=== PATIENT | male | born 1955 | race Caucasian/White ===

== ENCOUNTER 2022-06-25 07:52 | Outpatient (CLI) | payer MEDICARE, OTHER, SELFPAY | END 2022-06-25 07:53 | disposition home or self-care (01) | LOC: ANHAUDIO 07:53 | PROVIDERS: PCP Internal Medicine; Visit Provider Clinical Nurse Specialist | DX: H90.3 Sensorineural hearing loss, bilateral (principal) | CPT/HCPCS: 92557; 92567 ==

== ENCOUNTER 2022-08-04 00:57 | Day surgery (SDC) | payer MEDICARE, OTHER, SELFPAY ==
[2022-07-22 11:49] VITALS: BMI 23.1
--- NOTE | 2022-08-01 12:01 | P.HP_ITS ---
History of Present Illness History of Present Illness Consent: Risks, benefits, and alternatives have been discussed and questions answered. Patient agrees to proceed with procedure. Chief complaint: hx colon polyps Narrative: Grant Monge is a 67 year old male referred for colon cancer screening. His last colonoscopy was about 13 years ago. Review of Systems Review of Systems: All systems reviewed & are unremarkable except as noted in HPI and below PMFSH Past Medical History Medical History Hypertension Surgical History Surgical History History of permanent cardiac pacemaker placement S/P left inguinal herniorrhaphy Family History Family History Father Patient's father is Malignant neoplasm of prostate Sibling No family history of allergies Family history of malignant neoplasm of breast Mother No family history of hypertension Cerebrovascular accident Social History Social History Social History: caffeine-coffee Smoking status: Never smoker Second hand tobacco smoke exposure: No Alcohol intake: current Drinks per week: 2 Alcohol use details: 2 drinks daily Substance use type: does not use Lack of Transportation: No Lack of Food: Never True Current Housing: I Have Housing Concerned About Future Housing: No Difficulty Paying Gas/Electric Bills: No Difficulty Paying for Meds: No Currently Unemployed: No Education: Associate Degree Difficulty w/ Childcare or Family Care: No Living arrangements: alone Meds Home Medications and Allergies Home Medications Medication Instructions Recorded Confirmed Type metoprolol succinate 25 mg 25 mg PO DAILY 05/24/21 07/22/22 History tablet,extended release 24 hr aspirin 325 mg tablet 325 mg PO DAILY 06/18/22 07/22/22 History rosuvastatin 5 mg tablet 5 mg PO DAILY 06/18/22 07/22/22 History tamsulosin 0.4 mg capsule 0.4 mg PO DAILY 07/22/22 07/22/22 History trazodone 50 mg tablet 50 mg PO DAILY PRN Sleep 07/22/22 07/22/22 History Allergies Allergy/AdvReac Type Severity Reaction Status Date / Time No Known Allergies Allergy Verified 08/04/22 08:11 Exam 2 Const: General: alert Orientation/consciousness: patient oriented x3 Resp: Auscultation: clear to auscultation bilaterally Cardio: Rhythm: regular rhythm GI: GI Palp: Yes Soft to palpation and No Tenderness to palpation present (GI) Neuro: General: patient oriented x3 Assessment and Plan Assessment and plan (1) Screening for colon cancer: Code(s): Z12.11 - Encounter for screening for malignant neoplasm of colon Status: Acute Assessment and Plan: Colonoscopy with possible biopsy or polypectomy or cautery or injection of substances.
[2022-08-04 08:12] VITALS: BP 120/81; PULSE 70; RESP 18; TEMP 36.3; O2SAT 99
[2022-08-04] MEDS: LACTATED RINGERS 1,000 ML 150 ML IV CONT (08:24)
--- NOTE | 2022-08-04 09:08 | WPDANESEPPF ---
Anes - Initial Pre Proc Eval Procedure: Operation Date: 08/04/22 09:30 Proposed Procedures p Screening Colonoscopy - Randy Bragg MD Date/Time: 08/04/22 09:08 Surgeon: Randy Bragg MD Pre Op Diagnosis: hx colon polyps Patient Data Age: 67 Gender: M Height: 1.85 m Weight: 78.5 kg Last Vital Signs Temp 97.4 F L 08/04/22 08:12 Pulse 70 08/04/22 08:12 Resp 18 08/04/22 08:12 BP 120/81 08/04/22 08:12 Pulse Ox 99 08/04/22 08:12 O2 Del Method Room Air 08/04/22 08:12 Allergies Allergy/AdvReac Type Severity Reaction Status Date / Time No Known Allergies Allergy Verified 08/04/22 08:11 Home Medications Medication Instructions Recorded Confirmed Type metoprolol succinate 25 mg 25 mg PO DAILY 05/24/21 07/22/22 History tablet,extended release 24 hr aspirin 325 mg tablet 325 mg PO DAILY 06/18/22 07/22/22 History rosuvastatin 5 mg tablet 5 mg PO DAILY 06/18/22 07/22/22 History tamsulosin 0.4 mg capsule 0.4 mg PO DAILY 07/22/22 07/22/22 History trazodone 50 mg tablet 50 mg PO DAILY PRN Sleep 07/22/22 07/22/22 History Patient hx anesthesia problems: none Family hx anesthesia problems: none Results Review: All pre-operative results and documents have been reviewed as part of the pre-operative evaluation. [facility] Past Medical History Medical History Hypertension Surgical History Surgical History History of permanent cardiac pacemaker placement S/P left inguinal herniorrhaphy Family History Family History Father Patient's father is Malignant neoplasm of prostate Sibling No family history of allergies Family history of malignant neoplasm of breast Mother No family history of hypertension Cerebrovascular accident Social History Social History Social History: caffeine-coffee Smoking status: Never smoker Second hand tobacco smoke exposure: No Alcohol intake: current Drinks per week: 2 Alcohol use details: 2 drinks daily Substance use type: does not use Lack of Transportation: No Lack of Food: Never True Current Housing: I Have Housing Concerned About Future Housing: No Difficulty Paying Gas/Electric Bills: No Difficulty Paying for Meds: No Currently Unemployed: No Education: Associate Degree Difficulty w/ Childcare or Family Care: No Living arrangements: alone Anes - Eval Final PreProcedure Day of Procedure 08/04/22 09:08 Patient weight: normal Heart: regular rate and rhythm Lungs: clear to auscultation Airway: Mallampati scale class II Neurological: alert and oriented Last oral intake: >/= 8 hours ASA classification: III Emergent: no Anesthetic plan: proceed Anesthesia type and monitoring: general GIVS and standard monitoring Results Review: All pre-operative results and documents have been reviewed as part of the pre-operative evaluation. Informed Consent: The patient's anesthetic plan and its attendant risks and benefits were discussed with the patient/family/POA. Questions were solicited and answers provided to the satisfaction of the patient/family/POA.
[2022-08-04 09:52] VITALS: BP 114/74; PULSE 63; RESP 19; O2SAT 98
[2022-08-04 10:02] VITALS: BP 121/71; PULSE 60; RESP 23; O2SAT 100
[2022-08-04 10:12] VITALS: BP 115/73; PULSE 60; RESP 19; O2SAT 100
== END 2022-08-04 10:14 | disposition home or self-care (01) ==
PROVIDERS: PCP Internal Medicine; Visit Provider Internal Medicine Gastroenterology
PROC: 0DJD8ZZ Inspection of Lower Intestinal Tract, Via Natural or Artificial Opening Endoscopic (ICD-10-PCS; CPT 45378; principal; 2022-08-04 09:30)
DX: Z12.11 Encounter for screening for malignant neoplasm of colon (principal); I10 Essential (primary) hypertension; Z79.82 Long term (current) use of aspirin
CPT/HCPCS: G0121; J2001; J2704; J7120

== ENCOUNTER 2024-05-13 13:08 | Observation (INO) | payer MEDICARE, OTHER, SELFPAY ==
[2024-05-13] VITALS (13 sets, daily range): BP systolic 95–155; BP diastolic 57–90; PULSE 61–106; RESP 12–20; TEMP 36.1–37.4; O2SAT 96–100; BMI 24.7; BMI 24.5
--- NOTE | ~2024-05-13 | CT_ITS ---
EXAMINATION: CT abdomen pelvis w con DATE: 05/13/2024 16:33 INDICATION: Abdominal pain and diarrhea. TECHNIQUE: Computed tomography (CT) of the abdomen and pelvis was performed with 100 mL Omnipaque-350 intravenous contrast. Automated exposure control and iterative reconstruction technique were employe d. The dose-length product was 305.25 mGy-cm. COMPARISON: None FINDINGS: Mild dependent atelectasis in the bilateral lower lobes. Heart size is normal. No pericardial effusio n. Cardiac pacemaker lead tips at the right atrial appendage and apex of the right ventricle. Multipl e low-attenuation hepatic cysts measuring up to 1.3 cm. Gallbladder, spleen, pancreas, bilateral adre nal glands and left kidney are normal. 2 cm right renal cyst. There is also a 4 mm nonobstructing rig ht renal stone. There is wall thickening of the fluid-filled appendix which is dilated to 1.3 similar with surrounding inflammatory stranding consistent with acute appendicitis. Remainder of the bowels are unremarkable. Bladder is normal. Prostatomegaly measuring 5.8 x 5.6 cm. No free intraperitoneal g as or fluid. No pathologically enlarged abdominal or pelvic lymphadenopathy. Severe lumbar spondylosi s. IMPRESSION: 1. Acute appendicitis. Dr. Dunn discussed these findings with Alicja Ferguson at 6:38 PM. Reviewed, dictated and finalized at location A.
--- NOTE | 2024-05-13 13:41 | ED_ITS ---
HPI - Abdominal Pain General Chief Complaint: Abdominal Pain Stated Complaint: flank pain Time Seen by Provider: 05/13/24 13:41 Focused HPI: This is a 69 year old male that presents to the ER for low back pain. Ongoing over the last couple of weeks. Was prescribed muscle relaxer with little relief. Last night woke up feeling bloated. Had some diarrhea. Also now having pain in his abdomen. History of kidney stones. Denies fever, dysuria or hematuria GENERAL: Well-appearing, well-nourished, and in no acute distress. HEAD: Normocephalic, atraumatic. CHEST: Clear to auscultation. ?No respiratory distress. HEART: Regular rate and rhythm.? NEURO: ?Alert and oriented x3. Patient screened in triage and initial orders placed.? ?Additional care and disposition to be based upon?diagnostic testing and treatment. Related Data Home Medications Medication Instructions Recorded Confirmed aspirin 325 mg tablet 325 mg PO DAILY 06/18/22 05/04/24 tamsulosin 0.4 mg capsule 0.4 mg PO DAILY 07/22/22 05/04/24 Allergies Allergy/AdvReac Type Severity Reaction Status Date / Time No Known Allergies Allergy Verified 05/04/24 08:04 [facility] Past Medical History Medical History Hypertension Surgical History Surgical History History of permanent cardiac pacemaker placement S/P left inguinal herniorrhaphy Family History Family History Father Patient's father is Malignant neoplasm of prostate Sibling No family history of allergies Family history of malignant neoplasm of breast Mother No family history of hypertension Cerebrovascular accident Social History Social History Social History: caffeine-coffee Smoking status: Never smoker Second hand tobacco smoke exposure: No Alcohol intake: current Drinks per week: 2 Alcohol use details: 2 drinks daily Substance use type: does not use Do You Feel Safe in your Home?: Yes Lack of Transportation: No Lack of Food: Never True Current Housing: I Have Housing Concerned About Future Housing: No Difficulty Paying Gas/Electric Bills: No Difficulty Paying for Meds: No Currently Unemployed: No Education: Associate Degree Difficulty w/ Childcare or Family Care: No Living arrangements: alone Occupation/Education: occupation 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 Gender identity (if verbalized by the patient): Male Course Vital Signs Vital signs: Vital Signs Temperature 98.0 F 05/13/24 13:09 Pulse Rate 76 05/13/24 13:09 Respiratory Rate 18 05/13/24 13:09 Blood Pressure 113/90 05/13/24 13:09 Pulse Oximetry 99 05/13/24 13:09 Oxygen Delivery Room Air 05/13/24 13:09 Temperature 98.0 F 05/13/24 13:09 Pulse Rate 76 05/13/24 13:09 Respiratory Rate 18 05/13/24 13:09 Blood Pressure 113/90 05/13/24 13:09 Pulse Oximetry 99 05/13/24 13:09 Oxygen Delivery Room Air 05/13/24 13:09 MDM - Abdominal Pain Lab Data 05/13/24 13:52 05/13/24 13:52 Labs: Lab Results 05/13/24 05/13/24 05/13/24 Range/Units 13:52 13:53 16:17 WBC 13.3 H (4.5-10.0) K/mm3 RBC 5.10 (4.6-6.20) M/mm3 Hgb 16.0 (14.0-18.0) g/dL Hct 46.6 (42.0-52.0) % MCV 91.4 (80-100) fl MCH 31.4 (26-34) pg MCHC 34.3 (32-36) g/dl RDW 11.9 (11.5-14.5) % Plt Count 206 (150-375) k/mm3 MPV 10.0 (7.4-10.4) fl Immature Gran % (Auto) Not Reportable Neut % (Auto) Not Reportable Lymph % (Auto) Not Reportable [place] % (Auto) Not Reportable Eos % (Auto) Not Reportable Baso % (Auto) Not Reportable Lymph # (Auto) Not Reportable [place] # (Auto) Not Reportable Eos # (Auto) Not Reportable Baso # (Auto) Not Reportable Abs Immat Gran (auto) Not Reportable Absolute Neuts (auto) Not Reportable Absolute Nucleated RBC Not Reportable Total Counted 100 Neutrophils % (Manual) 86 H (46-73) % Band Neutrophils % 4 (0-6) % Lymphocytes % (Manual) 6 L (18-44) % Monocytes % (Manual) 4 (3-9) % Eosinophils % (Manual) 0 (0-4) % Basophils % (Manual) 0 (0-1) % Nucleated RBC % Not Reportable Abs Neuts (Manual) 11.97 H (1.3-6.7) K/mm3 Abs Lymphs (Manual) 0.79 L (1.1-4.5) K/mm3 Abs Monocytes (Manual) 0.53 (0.1-0.90) K/mm3 Absolute Eos (Manual) 0.00 L (0.02-0.50) K/mm3 Abs Basophils (Manual) 0.00 (0.0-0.1) K/mm3 Platelet Estimate Adequate (Adequate) Schistocytes None seen Sodium 135 L (137-145) mmol/L Potassium 4.0 (3.4-5.0) mmol/L Chloride 100 (98-107) mmol/L Carbon Dioxide 29 (22-30) mmol/L Anion Gap 6 (4-12) mmol/L BUN 24 H (9-20) mg/dL Creatinine 0.70 (0.7-1.3) mg/dL Estim Creat Clear Calc 93 ml/min Estimated GFR > 60 (59 - ) Glucose 126 H (65-110) mg/dL Lactic Acid 1.0 (0.7-2.0) mmol/L Calcium 9.2 (8.4-10.2) mg/dL Total Bilirubin 1.2 (0.2-1.3) mg/dL AST 25 (17-59) U/L ALT 18 (6-50) U/L Alkaline Phosphatase 53 (38-126) U/L Total Protein 7.0 (6.3-8.2) g/dL Albumin 4.5 (3.5-5.1) g/dL Lipase 42 (23-300) U/L Urine Color Yellow (Yellow) Urine Appearance Clear (Clear) Urine pH 5.0 (5.0-9.0) Ur Specific [place] 1.025 (1.001-1.035) Urine Protein Negative (Negative) mg/dL Urine Glucose (UA) Negative (Negative) mg/dL Urine Ketones 2+ H (Negative) mg/dL Ur Blood (Man) Trace (Negative) Urine Nitrate Negative (Negative) Urine Bilirubin Negative (Negative) Urine Urobilinogen 0.2 (<2.0) mg/dL Leukocyte Esterase Rfl Negative (Negative) CONCHITA/UL Urine RBC 0-2 (0-2) /hpf Urine WBC 0-5 (0-3) /hpf Ur Squamous Epith Cells None seen (Few) /hpf Urine Bacteria None seen /hpf Urine Casts 0-2 Imaging Data Radiologist's impression: ITS Impressions Abdomen/Pelvis CT 05/13/24 16:34 IMPRESSION: 1. Acute appendicitis. Dr. Dunn discussed these findings with Alicja Ferguson at 6:38 PM. Discharge Plan Discharge Instructions: Antibiotic Form Prescriptions: No Action aspirin 325 mg tablet 325 mg PO DAILY tamsulosin 0.4 mg capsule 0.4 mg PO DAILY metoprolol succinate 25 mg tablet extended release 24 hr 25 mg PO DAILY Qty: 90 1RF trazodone 50 mg tablet 50 mg PO DAILY PRN (Reason: Sleep) Qty: 30 0RF Rx Instructions: NEEDS APPOINTMENT FOR FURTHER REFILLS rosuvastatin 5 mg tablet 5 mg PO DAILY Qty: 90 0RF cyclobenzaprine 10 mg tablet 10 mg PO BID PRN (Reason: muscle spasm) Qty: 30 0RF Follow-up/Referrals: Naeem Rouse DO [Primary Care Provider] -
[2024-05-13 13:59] LABS: Hematocrit 46.6 % (42.0-52.0); Mean Corpuscular HGB Conc 34.3 g/dl (32-36); Mean Corpuscular Hemoglobin 31.4 pg (26-34); Mean Corpuscular Volume 91.4 fl (80-100); Platelet Count Result 206 k/mm3 (150-375); Red Cell Distribution Width 11.9 % (11.5-14.5); White Blood Count 13.3 K/mm3 (4.5-10.0)
[2024-05-13 14:04] LABS: Add Urine Microscopic? YES; Appearance Urine Clear (Clear); Bacteria Urine None Seen /hpf; Bilirubin Urine Negative (Negative); Blood Urine Trace (Negative); Color Urine Yellow (Yellow); Glucose Urine UA Negative (Negative); Ketones Urine 2+ mg/dL (Negative); Leukocyte Esterase Ur Negative LEU/UL (Negative); Nitrate Urine Negative (Negative); Non Pathogenic Casts 0-2; Protein Urine Negative (Negative); RBC Urine 0-2 /hpf (0-2); Specific Grav Ur 1.025 (1.001-1.035); Squamous Epithelial Cell Urine None Seen /hpf (Few); Urobilinogen Urine 0.2 mg/dL (<2.0); WBC Urine 0-5 /hpf (0-3)
[2024-05-13 14:11] LABS: Alanine Aminotransferase 18 U/L (6-50); Albumin Level 4.5 g/dL (3.5-5.1); Alkaline Phosphatase 53 U/L (38-126); Anion Gap 6 mmol/L (4-12); Aspartate Amino Transferase 25 U/L (17-59); Bilirubin,Total 1.2 mg/dL (0.2-1.3); Blood Urea Nitrogen 24 mg/dL (9-20); Calcium 9.2 mg/dL (8.4-10.2); Carbon Dioxide 29 mmol/L (22-30); Chloride 100 mmol/L (98-107); Estimated CRCL calculation 93 ml/min; Estimated Glomerular Filt Rate > 60; Glucose 126 mg/dL (65-110); Lipase 42 U/L (23-300); Sodium 135 mmol/L (137-145)
[2024-05-13 14:25] LABS: Band Neutrophils Percent 4 % (0-6); Basophils Percent Manual 0 % (0-1); Eosinophils Percent Manual 0 % (0-4); Lymphocytes Absolute Manual 0.79 K/mm3 (1.1-4.5); Lymphocytes Percent Manual 6 % (18-44); Monocytes Absolute Manual 0.53 K/mm3 (0.1-0.90); Monocytes Percent Manual 4 % (3-9); Neutrophils Absolute Manual 11.97 K/mm3 (1.3-6.7); Neutrophils Percent Manual 86 % (46-73); Platelet Estimate Adequate (Adequate); Total Cells Counted 100
[2024-05-13 14:27] LABS: Schistocytes None Seen
--- NOTE | 2024-05-13 16:00 | ED_ITS ---
HPI - Abdominal Pain General Chief Complaint: Abdominal Pain Stated Complaint: flank pain Time Seen by Provider: 05/13/24 13:41 Source: patient and family History of Present Illness HPI narrative: 69 YEARS OLD WHITE MALE COMPLAINING OF LEFT MID BACK PAIN FOR OVER 2 WEEKS, WAS SEEN BY HIS FAMILY PHYSICIAN, STARTED HIM ON MUSCLE RELAXANT AND IBUPROFEN WITHOUT IMPROVEMENT. PATIENT CAME TO THE ED BY PRIVATE CAR WITH HIS , COMPLAINING OF NAUSEA FREQUENT VOMITING AND ABDOMINAL BLOATING STARTED THIS MORNING, FEELS BETTER WHEN HE PASSED GAS.. HE DENIES ANY FEVER OR CHILLS. HISTORY OF LEFT ABDOMINAL HERNIA REPAIR 5 YEARS AGO AT [facility]. PATIENT CURRENTLY ON ASPIRIN, HISTORY OF HYPERLIPIDEMIA, AND PACEMAKER Related Data Home Medications Medication Instructions Recorded Confirmed aspirin 325 mg tablet 325 mg PO DAILY 06/18/22 05/04/24 tamsulosin 0.4 mg capsule 0.4 mg PO DAILY 07/22/22 05/04/24 Allergies Allergy/AdvReac Type Severity Reaction Status Date / Time No Known Allergies Allergy Verified 05/04/24 08:04 Review of Systems Review of Systems: All systems reviewed & are unremarkable except as noted in HPI and below PMFSH Past Medical History Medical History Hypertension Surgical History Surgical History History of permanent cardiac pacemaker placement S/P left inguinal herniorrhaphy Family History Family History Father Patient's father is Malignant neoplasm of prostate Sibling No family history of allergies Family history of malignant neoplasm of breast Mother No family history of hypertension Cerebrovascular accident Social History Social History Social History: caffeine-coffee Smoking status: Never smoker Second hand tobacco smoke exposure: No Alcohol intake: current Drinks per week: 2 Alcohol use details: 2 drinks daily Substance use type: does not use Do You Feel Safe in your Home?: Yes Lack of Transportation: No Lack of Food: Never True Current Housing: I Have Housing Concerned About Future Housing: No Difficulty Paying Gas/Electric Bills: No Difficulty Paying for Meds: No Currently Unemployed: No Education: Associate Degree Difficulty w/ Childcare or Family Care: No Living arrangements: alone Occupation/Education: occupation 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 MUSCULOSKELETAL: NORMAL RANGE OF MOTION, NONTENDER BACK NEUROLOGIC: ALERT AND ORIENTED ?3, MATERIAL ATTENDANT IS NORMAL TESTED, NO GROSS MOTOR DEFICIT Course Consultations Consultation #1: DR. CARO PATIENT GOING TO THE OR RIGHT NOW Date: 05/13/24 Time: 17:19 Vital Signs Vital signs: Vital Signs Temperature 36.7 C 05/13/24 13:09 Pulse Rate 76 05/13/24 13:09 Respiratory Rate 18 05/13/24 13:09 Blood Pressure 113/90 05/13/24 13:09 Pulse Oximetry 99 05/13/24 13:09 Oxygen Delivery Room Air 05/13/24 13:09 Temperature 36.7 C 05/13/24 13:09 Pulse Rate 76 05/13/24 13:09 Respiratory Rate 18 05/13/24 13:09 Blood Pressure 113/90 05/13/24 13:09 Pulse Oximetry 99 05/13/24 13:09 Oxygen Delivery Room Air 05/13/24 13:09 MDM - Abdominal Pain MDM Narrative Medical decision making narrative: PATIENT CAME WITH LEFT FLANK PAIN, VOMITING AND BLOATING. VITAL SIGNS ARE STABLE PHYSICAL EXAMINATION SHOWING TENDERNESS RIGHT LOWER QUADRANT OTHERWISE NO ACUTE ABDOMEN FINDING DIFFERENTIAL DIAGNOSIS INCLUDE KIDNEY STONE, URINARY TRACT INFECTION, APPENDICITIS, CHOLECYSTITIS, CONSTIPATION, COLITIS, DIVERTICULITIS, APPENDICITIS BLOOD WORKUP TODAY SHOWED WBC 13.3 URINALYSIS SHOWED NO EVIDENCE OF INFECTION CT SCAN OF THE ABDOMEN AND PELVIS WITH IV CONTRAST SHOWED ACUTE APPENDICITIS ZOSYN IV STARTED DR. CARO CONSULTED. Differential Diagnosis Differential diagnosis: Likely other ( ABOVE) Medical Records Attestation: I reviewed the patient's medical records. Lab Data Attestation: I reviewed the patient's lab results. 05/13/24 13:52 05/13/24 13:52 Labs: Lab Results 05/13/24 05/13/24 05/13/24 Range/Units 13:52 13:53 16:17 WBC 13.3 H (4.5-10.0) K/mm3 RBC 5.10 (4.6-6.20) M/mm3 Hgb 16.0 (14.0-18.0) g/dL Hct 46.6 (42.0-52.0) % MCV 91.4 (80-100) fl MCH 31.4 (26-34) pg MCHC 34.3 (32-36) g/dl RDW 11.9 (11.5-14.5) % Plt Count 206 (150-375) k/mm3 MPV 10.0 (7.4-10.4) fl Immature Gran % (Auto) Not Reportable Neut % (Auto) Not Reportable Lymph % (Auto) Not Reportable [place] % (Auto) Not Reportable Eos % (Auto) Not Reportable Baso % (Auto) Not Reportable Lymph # (Auto) Not Reportable [place] # (Auto) Not Reportable Eos # (Auto) Not Reportable Baso # (Auto) Not Reportable Abs Immat Gran (auto) Not Reportable Absolute Neuts (auto) Not Reportable Absolute Nucleated RBC Not Reportable Total Counted 100 Neutrophils % (Manual) 86 H (46-73) % Band Neutrophils % 4 (0-6) % Lymphocytes % (Manual) 6 L (18-44) % Monocytes % (Manual) 4 (3-9) % Eosinophils % (Manual) 0 (0-4) % Basophils % (Manual) 0 (0-1) % Nucleated RBC % Not Reportable Abs Neuts (Manual) 11.97 H (1.3-6.7) K/mm3 Abs Lymphs (Manual) 0.79 L (1.1-4.5) K/mm3 Abs Monocytes (Manual) 0.53 (0.1-0.90) K/mm3 Absolute Eos (Manual) 0.00 L (0.02-0.50) K/mm3 Abs Basophils (Manual) 0.00 (0.0-0.1) K/mm3 Platelet Estimate Adequate (Adequate) Schistocytes None seen Sodium 135 L (137-145) mmol/L Potassium 4.0 (3.4-5.0) mmol/L Chloride 100 (98-107) mmol/L Carbon Dioxide 29 (22-30) mmol/L Anion Gap 6 (4-12) mmol/L BUN 24 H (9-20) mg/dL Creatinine 0.70 (0.7-1.3) mg/dL Estim Creat Clear Calc 93 ml/min Estimated GFR > 60 (59 - ) Glucose 126 H (65-110) mg/dL Lactic Acid 1.0 (0.7-2.0) mmol/L Calcium 9.2 (8.4-10.2) mg/dL Total Bilirubin 1.2 (0.2-1.3) mg/dL AST 25 (17-59) U/L ALT 18 (6-50) U/L Alkaline Phosphatase 53 (38-126) U/L Total Protein 7.0 (6.3-8.2) g/dL Albumin 4.5 (3.5-5.1) g/dL Lipase 42 (23-300) U/L Urine Color Yellow (Yellow) Urine Appearance Clear (Clear) Urine pH 5.0 (5.0-9.0) Ur Specific [place] 1.025 (1.001-1.035) Urine Protein Negative (Negative) mg/dL Urine Glucose (UA) Negative (Negative) mg/dL Urine Ketones 2+ H (Negative) mg/dL Ur Blood (Man) Trace (Negative) Urine Nitrate Negative (Negative) Urine Bilirubin Negative (Negative) Urine Urobilinogen 0.2 (<2.0) mg/dL Leukocyte Esterase Rfl Negative (Negative) CONCHITA/UL Urine RBC 0-2 (0-2) /hpf Urine WBC 0-5 (0-3) /hpf Ur Squamous Epith Cells None seen (Few) /hpf Urine Bacteria None seen /hpf Urine Casts 0-2 Imaging Data Radiologist's impression: ITS Impressions Abdomen/Pelvis CT 05/13/24 16:34 IMPRESSION: 1. Acute appendicitis. Dr. Dunn discussed these findings with Alicja Ferguson at 6:38 PM. Critical Care Time Critical Care Time Critical Care Time: No Discharge Plan Discharge Clinical Impression: Acute appendicitis Patient Disposition: Still a Patient Condition: Stable Additional Instructions: ADMIT TO SURGERY Prescriptions: No Action aspirin 325 mg tablet 325 mg PO DAILY tamsulosin 0.4 mg capsule 0.4 mg PO DAILY metoprolol succinate 25 mg tablet extended release 24 hr 25 mg PO DAILY Qty: 90 1RF trazodone 50 mg tablet 50 mg PO DAILY PRN (Reason: Sleep) Qty: 30 0RF Rx Instructions: NEEDS APPOINTMENT FOR FURTHER REFILLS rosuvastatin 5 mg tablet 5 mg PO DAILY Qty: 90 0RF cyclobenzaprine 10 mg tablet 10 mg PO BID PRN (Reason: muscle spasm) Qty: 30 0RF Follow-up/Referrals: Naeem Rouse DO [Primary Care Provider] -
[2024-05-13] MEDS: SODIUM CHLORIDE 0.9% IV 1,000 ML 999 ML IV CONT (16:20)
[2024-05-13] MEDS: MORPHINE SULFATE (*CRX) 4 MG/ML INJ IV PUSH (16:22)
[2024-05-13] MEDS: ONDANSETRON INJ 4 MG/2 ML VIAL IV PUSH (16:22)
[2024-05-13] MEDS: PIPERACILLN/TAZ 3.375GM/NS50ML 3.375 GM/50 ML BAG IVPB (17:09)
--- NOTE | 2024-05-13 18:02 | P.PNAN_ITS ---
Anes - Initial Pre Proc Eval Procedure: Operation Date: 05/13/24 18:00 Proposed Procedures p Laparoscopic Appendectomy - Adalberto Quiles MD Date/Time: 05/13/24 18:02 Surgeon: Adalberto Quiles MD Pre Op Diagnosis: Acute Appendicitis Pre Op Diagnosis: flank pain Patient Data Age: 69 Gender: M Height: 1.85 m Weight: 79 kg Last Vital Signs Temp 36.7 C 05/13/24 13:09 Pulse 91 05/13/24 17:30 Resp 16 05/13/24 17:30 BP 131/76 05/13/24 17:30 Pulse Ox 96 05/13/24 17:30 O2 Del Method Room Air 05/13/24 13:09 Allergies Allergy/AdvReac Type Severity Reaction Status Date / Time No Known Allergies Allergy Verified 05/04/24 08:04 Home Medications Medication Instructions Recorded Confirmed Type aspirin 325 mg tablet 325 mg PO DAILY 06/18/22 05/04/24 History tamsulosin 0.4 mg capsule 0.4 mg PO DAILY 07/22/22 05/04/24 History metoprolol succinate 25 mg 25 mg PO DAILY #90 tabs 10/23/22 05/04/24 Rx tablet,extended release 24 hr trazodone 50 mg tablet 50 mg PO DAILY PRN Sleep #30 tabs 01/25/24 05/04/24 Rx rosuvastatin 5 mg tablet 5 mg PO DAILY #90 tabs 04/26/24 05/04/24 Rx cyclobenzaprine 10 mg tablet 10 mg PO BID PRN muscle spasm #30 05/04/24 05/04/24 Rx tabs Laboratory Tests 05/13/24 05/13/24 05/13/24 13:52 13:53 16:17 WBC 13.3 H K/mm3 (4.5-10.0) RBC 5.10 M/mm3 (4.6-6.20) Hgb 16.0 g/dL (14.0-18.0) Hct 46.6 % (42.0-52.0) MCV 91.4 fl (80-100) MCH 31.4 pg (26-34) MCHC 34.3 g/dl (32-36) RDW 11.9 % (11.5-14.5) Plt Count 206 k/mm3 (150-375) MPV 10.0 fl (7.4-10.4) Immature Gran % (Auto) Not Reportable Neut % (Auto) Not Reportable Lymph % (Auto) Not Reportable [place] % (Auto) Not Reportable Eos % (Auto) Not Reportable Baso % (Auto) Not Reportable Lymph # (Auto) Not Reportable [place] # (Auto) Not Reportable Eos # (Auto) Not Reportable Baso # (Auto) Not Reportable Abs Immat Gran (auto) Not Reportable Absolute Neuts (auto) Not Reportable Absolute Nucleated RBC Not Reportable Total Counted 100 Neutrophils % (Manual) 86 H % (46-73) Band Neutrophils % 4 % (0-6) Lymphocytes % (Manual) 6 L % (18-44) Monocytes % (Manual) 4 % (3-9) Eosinophils % (Manual) 0 % (0-4) Basophils % (Manual) 0 % (0-1) Nucleated RBC % Not Reportable Abs Neuts (Manual) 11.97 H K/mm3 (1.3-6.7) Abs Lymphs (Manual) 0.79 L K/mm3 (1.1-4.5) Abs Monocytes (Manual) 0.53 K/mm3 (0.1-0.90) Absolute Eos (Manual) 0.00 L K/mm3 (0.02-0.50) Abs Basophils (Manual) 0.00 K/mm3 (0.0-0.1) Platelet Estimate Adequate (Adequate) Schistocytes None seen Sodium 135 L mmol/L (137-145) Potassium 4.0 mmol/L (3.4-5.0) Chloride 100 mmol/L (98-107) Carbon Dioxide 29 mmol/L (22-30) Anion Gap 6 mmol/L (4-12) BUN 24 H mg/dL (9-20) Creatinine 0.70 mg/dL (0.7-1.3) Estim Creat Clear Calc 93 ml/min Estimated GFR > 60 (59 - ) Glucose 126 H mg/dL (65-110) Lactic Acid 1.0 mmol/L (0.7-2.0) Calcium 9.2 mg/dL (8.4-10.2) Total Bilirubin 1.2 mg/dL (0.2-1.3) AST 25 U/L (17-59) ALT 18 U/L (6-50) Alkaline Phosphatase 53 U/L (38-126) Total Protein 7.0 g/dL (6.3-8.2) Albumin 4.5 g/dL (3.5-5.1) Lipase 42 U/L (23-300) Urine Color Yellow (Yellow) Urine Appearance Clear (Clear) Urine pH 5.0 (5.0-9.0) Ur Specific [place] 1.025 (1.001-1.035) Urine Protein Negative mg/dL (Negative) Urine Glucose (UA) Negative mg/dL (Negative) Urine Ketones 2+ H mg/dL (Negative) Ur Blood (Man) Trace (Negative) Urine Nitrate Negative (Negative) Urine Bilirubin Negative (Negative) Urine Urobilinogen 0.2 mg/dL (<2.0) Leukocyte Esterase Rfl Negative CONCHITA/UL (Negative) Urine RBC 0-2 /hpf (0-2) Urine WBC 0-5 /hpf (0-3) Ur Squamous Epith Cells None seen /hpf (Few) Urine Bacteria None seen /hpf Urine Casts 0-2 Patient hx anesthesia problems: none Family hx anesthesia problems: none Prior surgeries: left hernia repair, pacemaker placement Results Review: All pre-operative results and documents have been reviewed as part of the pre- operative evaluation. [facility] Past Medical History Medical History Hypertension Surgical History Surgical History History of permanent cardiac pacemaker placement S/P left inguinal herniorrhaphy Family History Family History Father Patient's father is Malignant neoplasm of prostate Sibling No family history of allergies Family history of malignant neoplasm of breast Mother No family history of hypertension Cerebrovascular accident Social History Social History Social History: caffeine-coffee Smoking status: Never smoker Second hand tobacco smoke exposure: No Alcohol intake: current Drinks per week: 2 Alcohol use details: 2 drinks daily Substance use type: does not use Do You Feel Safe in your Home?: Yes Lack of Transportation: No Lack of Food: Never True Current Housing: I Have Housing Concerned About Future Housing: No Difficulty Paying Gas/Electric Bills: No Difficulty Paying for Meds: No Currently Unemployed: No Education: Associate Degree Difficulty w/ Childcare or Family Care: No Living arrangements: alone Occupation/Education: occupation 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 Informed Consent: The patient's anesthetic plan and its attendant risks and benefits were discussed with the patient/family/POA. Questions were solicited and answers provided to the satisfaction of the patient/family/POA.
--- NOTE | 2024-05-13 18:08 | PM.IMHP ---
H&P: HPI History of Present Illness Date/Time: 05/13/24 18:08 Chief Complaint: Acute appendicitis Narrative: Patient presented to ER with 2 week history of left flank pain. This morning he woke up with more right lower quadrant pain and had multiple episodes of nausea and vomiting. No diarrhea. He has not had problems urinating no hematuria. The emergency room had elevated white blood count [address]. CT scan abdomen pelvis showed dilated appendix with acute inflammation of the appendix without perforation or periappendiceal abscess. He has had a prior pacemaker placed is on continuous pacing. He has also had a previous open left inguinal hernia repair by Dr. Saavedra with mesh in 2007. Review of Systems Review of Systems: The remainder of the review of systems to include constitutional, HEENT, cardiovascular, respiratory, GI, , integumentary, musculoskeletal, endocrine, immunologic, hematologic, psychiatric, and neurologic are all negative except for which is mentioned above in the HPI. [facility] Past Medical History Medical History Hypertension Surgical History Surgical History History of permanent cardiac pacemaker placement S/P left inguinal herniorrhaphy Family History Family History Father Patient's father is Malignant neoplasm of prostate Sibling No family history of allergies Family history of malignant neoplasm of breast Mother No family history of hypertension Cerebrovascular accident Social History Social History Social History: caffeine-coffee Smoking status: Never smoker Second hand tobacco smoke exposure: No Alcohol intake: current Drinks per week: 2 Alcohol use details: 2 drinks daily Substance use type: does not use Do You Feel Safe in your Home?: Yes Lack of Transportation: No Lack of Food: Never True Current Housing: I Have Housing Concerned About Future Housing: No Difficulty Paying Gas/Electric Bills: No Difficulty Paying for Meds: No Currently Unemployed: No Education: Associate Degree Difficulty w/ Childcare or Family Care: No Living arrangements: alone Occupation/Education: occupation 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 Gender identity (if verbalized by the patient): Male Meds Home Medications and Allergies Home Medications Medication Instructions Recorded Confirmed Type aspirin 325 mg tablet 325 mg PO DAILY 06/18/22 05/04/24 History tamsulosin 0.4 mg capsule 0.4 mg PO DAILY 07/22/22 05/04/24 History metoprolol succinate 25 mg 25 mg PO DAILY #90 tabs 10/23/22 05/04/24 Rx tablet,extended release 24 hr trazodone 50 mg tablet 50 mg PO DAILY PRN Sleep #30 tabs 01/25/24 05/04/24 Rx rosuvastatin 5 mg tablet 5 mg PO DAILY #90 tabs 04/26/24 05/04/24 Rx cyclobenzaprine 10 mg tablet 10 mg PO BID PRN muscle spasm #30 05/04/24 05/04/24 Rx tabs Allergies Allergy/AdvReac Type Severity Reaction Status Date / Time No Known Allergies Allergy Verified 05/04/24 08:04 Vital Signs Vital Signs - 24 hr 05/13/24 13:09 05/13/24 16:00 05/13/24 17:30 Temperature 36.7 C Pulse Rate 76 92 91 Respiratory Rate 18 16 16 Blood Pressure 113/90 115/74 131/76 Pulse Oximetry 99 96 96 Oxygen Delivery Room Air Exam Const: General: comfortable and no acute distress HENMT: Ears: TM's normal bilaterally Face/Nose/Sinus: Normal nares present Mouth: Yes moist mucous membranes Eyes: General: appearance normal, both eyes and all related structures Sclera: sclerae normal Pupils: Equal, round and reactive pupils present EOM: EOMs intact bilaterally Neck: Neck: supple and no JVD Resp: Effort & Inspection: normal respiratory effort Auscultation: clear to auscultation bilaterally Cardio: Rate: regular rate Rhythm: regular rhythm GI: Other: Abdomen is soft and nondistended. He has moderate tenderness to palpation with localized guarding in the right lower quadrant. No generalized peritoneal signs. He has well-healed left groin scar for his previous left inguinal hernia repair. There is no evidence of recurrent left inguinal hernia. Skin: General skin exam: normal color and no rashes or lesions noted Neuro: General: gait normal Speech: normal speech Motor exam (neuro): 5/5 motor strength present throughout and Motor abnormalites present Sensory Exam: normal sensation Extrem: General: normal to inspection Psych: Mental Status: mental status grossly normal Affect: normal affect H&P: Results Labs Labs: Short CBC 05/13/24 Range/Units 13:52 WBC 13.3 H (4.5-10.0) K/mm3 Hgb 16.0 (14.0-18.0) g/dL Hct 46.6 (42.0-52.0) % Plt Count 206 (150-375) k/mm3 BMP 05/13/24 13:52 Sodium 135 L Potassium 4.0 Chloride 100 Carbon Dioxide 29 BUN 24 H Creatinine 0.70 Glucose 126 H Calcium 9.2 Liver Function 05/13/24 Range/Units 13:52 Total Bilirubin 1.2 (0.2-1.3) mg/dL AST 25 (17-59) U/L ALT 18 (6-50) U/L Alkaline Phosphatase 53 (38-126) U/L Albumin 4.5 (3.5-5.1) g/dL Urine 05/13/24 Range/Units 13:53 Urine Color Yellow (Yellow) Urine Appearance Clear (Clear) Urine pH 5.0 (5.0-9.0) Ur Specific [place] 1.025 (1.001-1.035) Urine Protein Negative (Negative) mg/dL Urine Glucose (UA) Negative (Negative) mg/dL Imaging CT scan - abdomen: Radiologist's impression: EXAMINATION: CT abdomen pelvis w con DATE: 05/13/2024 16:33 INDICATION: Abdominal pain and diarrhea. TECHNIQUE: Computed tomography (CT) of the abdomen and pelvis was performed with 100 mL Omnipaque-350 intravenous contrast. Automated exposure control and iterative reconstruction technique were employed. The dose-length product was 305.25 mGy-cm. COMPARISON: None FINDINGS: Mild dependent atelectasis in the bilateral lower lobes. Heart size is normal. No pericardial effusion. Cardiac pacemaker lead tips at the right atrial appendage and apex of the right ventricle. Multiple low-attenuation hepatic cysts measuring up to 1.3 cm. Gallbladder, spleen, pancreas, bilateral adrenal glands and left kidney are normal. 2 cm right renal cyst. There is also a 4 mm nonobstructing right renal stone. There is wall thickening of the fluid-filled appendix which is dilated to 1.3 similar with surrounding inflammatory stranding consistent with acute appendicitis. Remainder of the bowels are unremarkable. Bladder is normal. Prostatomegaly measuring 5.8 x 5.6 cm. No free intraperitoneal gas or fluid. No pathologically enlarged abdominal or pelvic lymphadenopathy. Severe lumbar spondylosis. IMPRESSION: 1. Acute appendicitis. Dr. Dunn discussed these findings with Alicja Ferguson at 6:38 PM. Reviewed, dictated and finalized at location A. Dictated By: Jossue Dunn MD 05/13/24 1634 Signed By: <Electronically signed by Jossue Dunn MD in OV> Assessment and Plan Assessment and plan (1) Acute appendicitis: Code(s): K35.80 - Unspecified acute appendicitis Status: Acute Assessment and Plan: Patient appears to have acute appendicitis which appears to be non complicated. Elevated white blood cell count and CT images show a dilated inflamed appendix without perforation. He has been given Zosyn for IV antibiotics. He has been NPO. He is paced with his pacemaker but he only takes an adult aspirin and no other blood thinners. He needs to go to the operating room this evening for emergent laparoscopic appendectomy. Risks, benefits, indications, and expected outcomes were discussed in detail with the patient and/or family. They understand and I have answered all other questions. They wished to proceed with surgery as outlined above.
[2024-05-13] MEDS: BUPivacaine HCL 0.5% PF 30 ML VIAL INFILTRATE (18:17)
[2024-05-13] MEDS: LIDO 1%/EPINEPHRINE 1:100,000 50 ML VIAL 30 ML INFILTRATE (18:17)
--- NOTE | 2024-05-13 18:19 | P.PNAN_ITS ---
Anes - Eval Final PreProcedure Day of Procedure 05/13/24 18:19 Patient weight: normal Heart: regular rate and rhythm Lungs: clear to auscultation Airway: Mallampati scale class II Neurological: alert and oriented Last oral intake: >/= 8 hours ASA classification: III Emergent: yes Anesthetic plan: delay Anesthesia type and monitoring: general ETT and standard monitoring Results Review: All pre-operative results and documents have been reviewed as part of the pre- operative evaluation. Hyperlipidemia, hx of pacemaker for CHB and currently paced. Typically active without cp or sob. Informed Consent: The patient's anesthetic plan and its attendant risks and benefits were discussed with the patient/family/POA. Questions were solicited and answers provided to the satisfaction of the patient/family/POA.
[2024-05-13] MEDS: LACTATED RINGERS 1,000 ML 30 ML IV CONT ×2 (19:20→19:28)
--- NOTE | 2024-05-13 20:02 | W.PM.PROC2 ---
Procedure Note - Detailed Date of Procedure 05/13/24 Pre-op Diagnosis Acute appendicitis Post-op Diagnosis Same Procedure Performed Laparoscopic appendectomy Surgeon Adalberto Quiles MD Mental Health Practitioner KAREN English Anesthesia General Indications Patient is a 69-year-old white male presented to the emergency room with a one-day history of severe right lower quadrant abdominal pain. He has had the left side abdominal pain for the prior 2 weeks but only had right-sided abdominal pain for about 24hours. He had multiple episodes of nausea vomiting[place] [address] scan abdomen pelvis showed a dilated inflamed appendix without perforation or periappendiceal abscess. He presents now for emergent laparoscopic appendectomy. Findings The patient acutely inflamed appendix which was partially retrocecal. It was not perforated. The base appendix appeared to be totally viable. Description of Procedure After informed consent was obtained patient brought to the operating room was placed supine position and general endotracheal anesthesia was administered. A Lopez catheter was placed decompress the bladder and the abdomen was then prepped and draped usual sterile fashion. A time-out was then performed correctly identifying the patient as well as the procedure to be performed. He was already given scheduled IV antibiotics. I then entered the abdomen left upper quadrant utilizing a 5mm Optiview port. Once inside the abdomen insufflated to adequate pneumoperitoneum of 15mmHg of CO2. I then placed additional laparoscopic ports to include a 5 Hernández suprapubic trocar port as well as a 5mm right lower quadrant trocar port. A 12mm periumbilical trocar was also placed. The appendix was then visualized in the right lower quadrant the abdomen was partially retrocecal. There was an adhesion of Indra's veil which was divided with electrocautery very carefully. This exposed the midportion of the appendix and then I was able to bluntly dissect with the end of the nanoelectronics engineer device to free up the rest of the appendix. The base of the appendix appeared to be viable without evidence of any gangrene and only had minimal inflammation. Holding the appendix up with a laparoscopic grasper I then made a defect through the mesoappendix near the base. A 45mm Endo-REINALDO stapler was then used to divide the appendix flush with the cecum. A vascular reload to the Endo-REINALDO stapler was then used to divide the mesoappendix. The appendix was then placed into an Endo-Catch bag and brought out through the periumbilical trocar port site. It was sent to pathology for examination. I then irrigated out the right lower quadrant the abdomen with sterile saline solution. The staple lines on the cecum and the mesoappendix appeared to be hemostatic. Aspirated the fluid from the right lower quadrant the abdomen from the pelvis. I then removed all the trocar ports under direct visualization all port sites appeared hemostatic. The abdomen is then allowed to decompress. I then irrigated the port sites sterile saline solution and the 12mm periumbilical trocar port fascial defect was then closed utilizing 0 Vicryl suture in a figure-eight fashion. The skin edges in all the port sites were then approximated utilizing a running subcuticular 4 Monocryl suture. The incisions were then cleaned the skin glue was applied. The Lopez catheter was removed at the end the procedure. The patient tolerated the procedure well no complications. All sponges, needles, and instrument counts were correct at the end procedure. EBL was _10__cc. The patient was awakened and taken to recovery in stable and satisfactory condition. Implants None Estimated Blood Loss 10 Drains No Packing No Pathology Yes (Appendix to pathology) Complications No immediate complications Condition Stable Disposition PACU [facility] Billing Surgery - Charge Forward: Surgery Billing
--- NOTE | 2024-05-13 20:46 | ADMGEN ---
This patient, Grant Monge, was admitted to Medical Room 249-01. Patient/family oriented to hospital policies and general routines including ID bracelet, bed and alarms, visiting hours, pain management, procedures, bathroom and other care routines, personal items, smoking policy, room service/diet, and visiting hours. Information on how to activate the Rapid Response Team has been discussed. Patient/Family are encouraged to report perceived risks to care and to ask questions if they do not understand what they are told or what they should do.
[2024-05-14] VITALS: PULSE 72
[2024-05-14 02:16] VITALS: BP 110/62; PULSE 64; RESP 20; TEMP 36.5; O2SAT 95
[2024-05-14 04:00] VITALS: PULSE 64
[2024-05-14 06:00] VITALS: BP 166/57; PULSE 81; RESP 16; TEMP 36.3; O2SAT 95
[2024-05-14 08:00] VITALS: PULSE 66
--- NOTE | 2024-05-14 08:18 | PM.DS ---
DS: Admitting Diagnosis Discharge Date May 14, 2024 Admitting Diagnosis Acute appendicitis DS: Discharge Diagnosis Discharge Diagnosis (1) Acute appendicitis: Code(s): K35.80 - Unspecified acute appendicitis Status: Acute DS: Summary Hospital Course Reason for hospitalization: Acute appendicitis Hospital Course: Patient given [facility] on May 13, 2024 complaining of severe right lower quadrant abdominal pain. He had actually had left lower quadrant abdominal pain for the prior 2 weeks but then on the day of admission to the hospital he suddenly had right lower quadrant abdominal pain. He no longer had left abdominal pain. [place] [id number] scan abdomen pelvis showed dilated and inflamed appendix without perforation or periappendiceal abscess. He was started on IV antibiotics in the emergency room and kept NPO. He was then taken emergently to the operating room where he underwent a uncomplicated laparoscopic appendectomy. Post surgically he did well in the recovery room but then was admitted to the surgical floor for extended outpatient recovery due to the late hour the day as well as fact he had a pacemaker and he was just monitored on telemetry overnight. He did very well had no problems. This morning does not have any right lower quadrant pain. His incisions are healing well. No issues overnight on telemetry cardiac garcia. He was discharged home on postop day1 in improved condition. Status at Discharge Functional status at discharge: independent ambulation Overall status at discharge: patient is back to baseline Time Spent with Patient Time attestation: Total time spent providing and/or coordinating discharge services: Time spent: Less than 30 minutes Exam GI: Other: Abdomen is soft and nondistended. Port site incisions are healing well without any redness or any drainage. Minimal tenderness around the port sites. No right lower quadrant tenderness. DS: Data Data Completed and Pending Pending studies at discharge: Pending at discharge 05/13/24 19:02 Surgical [PTH] Routine Labs on day of discharge: Labs from last 24 hours 05/13/24 05/13/24 05/13/24 16:17 13:53 13:52 WBC 13.3 H RBC 5.10 Hgb 16.0 Hct 46.6 MCV 91.4 MCH 31.4 MCHC 34.3 RDW 11.9 Plt Count 206 MPV 10.0 Immature Gran % (Auto) Not Reportable Neut % (Auto) Not Reportable Lymph % (Auto) Not Reportable Jackson % (Auto) Not Reportable Eos % (Auto) Not Reportable Baso % (Auto) Not Reportable Lymph # (Auto) Not Reportable Jackson # (Auto) Not Reportable Eos # (Auto) Not Reportable Baso # (Auto) Not Reportable Abs Immat Gran (auto) Not Reportable Absolute Neuts (auto) Not Reportable Absolute Nucleated RBC Not Reportable Total Counted 100 Neutrophils % (Manual) 86 H Band Neutrophils % 4 Lymphocytes % (Manual) 6 L Monocytes % (Manual) 4 Eosinophils % (Manual) 0 Basophils % (Manual) 0 Nucleated RBC % Not Reportable Abs Neuts (Manual) 11.97 H Abs Lymphs (Manual) 0.79 L Abs Monocytes (Manual) 0.53 Absolute Eos (Manual) 0.00 L Abs Basophils (Manual) 0.00 Platelet Estimate Adequate Schistocytes None seen Sodium 135 L Potassium 4.0 Chloride 100 Carbon Dioxide 29 Anion Gap 6 BUN 24 H Creatinine 0.70 Estim Creat Clear Calc 93 Estimated GFR > 60 Glucose 126 H Lactic Acid 1.0 Calcium 9.2 Total Bilirubin 1.2 AST 25 ALT 18 Alkaline Phosphatase 53 Total Protein 7.0 Albumin 4.5 Lipase 42 Urine Color Yellow Urine Appearance Clear Urine pH 5.0 Ur Specific [place] 1.025 Urine Protein Negative Urine Glucose (UA) Negative Urine Ketones 2+ H Ur Blood (Man) Trace Urine Nitrate Negative Urine Bilirubin Negative Urine Urobilinogen 0.2 Leukocyte Esterase Rfl Negative Urine RBC 0-2 Urine WBC 0-5 Ur Squamous Epith Cells None seen Urine Bacteria None seen Urine Casts 0-2 Discharge Plan Discharge Attending physician on discharge: Adalberto Quiles Discharging Clinician: Adalberto Quiles Patient Disposition: Home, Self-Care Discharge Instructions: May discharge home when stable. Follow up with Dr. Quiles in the office in 2 weeks. Patient to call [phone] for an appointment. May shower in 24hours but do not soak incisions under water for 2 weeks. No lifting more than 10 to 15 lb for 2 weeks. May advance diet as tolerated. No driving for at least 3 days or until no longer taking any narcotic pain medication. Resume all home medications. Prescription for narcotic pain medicines will be sent to the patient's pharmacy if needed. May use Tylenol and/or ibuprofen in addition to or in place of narcotic pain medications for postoperative pain. Stand Alone Forms: General Discharge Instructions Follow-up/Referrals: Adalberto Quiles MD [Physician] - Naeem Rouse DO [Primary Care Provider] - Discharge Medications: New hydrocodone-acetaminophen 5-325 mg tablet 1 tablet PO Q4H PRN (Reason: pain) Qty: 12 0RF Continued aspirin 325 mg tablet 325 mg PO DAILY tamsulosin 0.4 mg capsule 0.4 mg PO DAILY metoprolol succinate 25 mg tablet extended release 24 hr 25 mg PO DAILY Qty: 90 1RF rosuvastatin 5 mg tablet 5 mg PO DAILY Qty: 90 0RF Attending physician on admission: Adalberto Quiles Condition: Stable
== END 2024-05-14 10:35 | disposition home or self-care (01) ==
LOC: ANHED 17:16 → ANHSURGERY 17:19 → ANH2MED 05-14 08:23 → ANHSURGERY 05-17 06:58 → ANH2MED 05-17 06:58
PROVIDERS: Physician Assistant; Admitting Provider Surgery; Emergency Provider Emergency Medicine; PCP Internal Medicine; Visit Provider Surgery
PROC: 0DTJ4ZZ Resection of Appendix, Percutaneous Endoscopic Approach (ICD-10-PCS; CPT 44970; principal; 2024-05-13 18:00)
DX: K35.80 Unspecified acute appendicitis (principal); I10 Essential (primary) hypertension; E78.5 Hyperlipidemia, unspecified; Z79.82 Long term (current) use of aspirin; Z79.899 Other long term (current) drug therapy; Z95.0 Presence of cardiac pacemaker; Z98.890 Other specified postprocedural states
CPT/HCPCS: 44970; 36415; 74177; 80053; 81001; 83605; 83690; 85025; 88304; 96365; 96375; 99199; 99285; J1100; J1171; J2003; J2004; J2175; J2250; J2270; J2371; J2405; J2543; J2704; J3010; J7030; J7120; Q9967

== ENCOUNTER 2024-09-08 07:55 | Outpatient (CLI) | payer MEDICARE, OTHER, SELFPAY | END 2024-09-08 07:56 | disposition home or self-care (01) | LOC: ANHIMG 07:56 | PROVIDERS: PCP Internal Medicine; Visit Provider Nurse Practitioner | DX: R22.31 Localized swelling, mass and lump, right upper limb (principal) | CPT/HCPCS: 76882 ==

== ENCOUNTER 2024-09-29 08:20 | Outpatient (NON) | payer MEDICARE, OTHER, SELFPAY ==
--- OUTSIDE RECORDS SUMMARY | 2024-09-30 08:43 | XMS_ITS | Clinical Summary ---
Author Organization [facility] Address [address] [place] [id number] Care Team Providers Care Remote Sensing Specialist Name Role Phone Naeem Rouse DO Primary Care Provider +1- [phone] Allergies No known active allergies Medications tamsulosin (FLOMAX) 0.4 mg extended release capsuleIndicati ons:Elevated prostate specific antigen (PSA) Take 1 capsule (0.4 mg total) by mouth daily 90 capsule 3 11/12/2023 Active Active Problems No known active problems Social History Tobacco Use Types Packs/Day Years Used Date Smoking Tobacco: Never Smokeless Tobacco: Never Personal Safety Answer Date Recorded Getting School Help Needed Not on file 07/02 Sex and Gender Information Value Date Recorded Sex Assigned at Not on file 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 Gender Identity Male 05/29/2021 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 Sexual Orientation Not on file Obstetrics History Plan of Treatment Health Maintenance Due Date Last Done Comments Colon Cancer Screening-Colonoscopy 1953 Depression Screening 1953 Fall Risk Assessment 1955 Hepatitis C Screening 1955 DTaP/Tdap/Td Vaccine (1 - Tdap) 01/25/1964 Hepatitis B Screening 1971 Pneumococcal vaccine 65+ (1 of 1 - PCV) 2003 Well Visit 65+ 2018 Zoster Vaccine (2 of 3) 07/01/2019 05/06/2019 Covid-19 Vaccine (4 - 2023-2 5 season) 2024 05/10/2021, 09/30/2020, 09/09/2020 Influenza Vaccine (#1) 2024 9, 04/13/2018, 05/02/2017, Additional history exists Prostate Cancer Screening-PSA Discontinued 12/11/2021 Procedures Procedure Name Priority Date/Time Associated Diagnosis Comments PSA, TOTAL AND FREE Routine 12/11/2021 7 :56 AM CDT Elevated prostate specific antigen (PSA) from Last 3 Months or Most Recently Relevant to Health Maintenance Results * PSA, total and free (12/11/2021 7:56 AM CDT) PSA 3.1 < OR = 4.0 ng/mL [facility] PSA, free 0.9 ng/mL [facility] PSA, free 29 >25 % (calc) [facility] Comment: PSA(ng/mL) Free PSA(%) Estimated(x) Probability of Cancer(as%) 0-2.5 (*) Approx. 1 2.6-4.0(1) 0-27(2) 24(3) 4.1-10(4) 0-10 56 11-15 28 16-20 20 21-25 16 >or =26 8 >10(+) N/A >50 References:(1)Davidona et al.:Urology 60: 469-474 (2001) (2)Sol et al.:J.Urol 168: 922-925 (2001) Free PSA(%) Sensitivity(%) Specificity(%) < or = 25 85 19 < or = 30 93 9 (3)Catalona et al.:LAURY 277: 7238-9702 (1996) (4)Catalona et al.:LAURY 279: 7087-5706 (1997) (x)These estimates vary with age, ethnicity, family history and LACHELLE results. (*)The diagnostic usefulness of % Free PSA has not been established in patients with total PSA below 2.6 ng/mL (+)In men with PSA above 10 ng/mL, prostate cancer risk is determined by total PSA alone. The Total PSA value from this assay system is standardized against the equimolar PSA standard. The test result will be approximately 20% higher when compared to the WHO-standardized Total PSA (Siemens assay). Comparison of serial PSA results should be interpreted with this fact in mind. PSA was performed using the Adrian Kiana Immunoassay method. Values obtained from different assay methods cannot be used interchangeably. PSA levels, regardless of value, should not be interpreted as absolute evidence of the presence or absence of disease. Blood specimen (specimen) 12/11/2021 7:56 AM CDT 12/11/2021 7:57 AM CDT [facility] - 12/12/2021 3:25 PM CDT FASTING:YES FASTING: YES Boogie Barry MD LAB BLOOD ORDERABLES Final Resul t [facility] [address] [place] [address] from Last 3 Months or Most Recently Relevant to Health Maintenance Insurance MEDICARE [facility] Care Teams Remote Sensing Specialist Relationship Specialty Start Date End Date Naeem Rouse DO PCP - General Internal Medicine 05/28/21
--- OUTSIDE RECORDS SUMMARY | 2024-09-30 08:43 | XMS_ITS | Clinical Summary ---
Author Organization [employer] [facility] Address [address] [facility] Attn: Nieves Prelude ADT ANTHONY RODAS RAMIRO [id number] Care Team Providers Care Slasher Tender Name Role Phone Unavailable Primary Care Provider Unavailabl e Medications tamsulosin (FLOMAX) 0.4 mg capsule Take 1 capsule (0.4 mg total) by mouth daily 90 Capsule 3 2 Active metoprolol succinate (Toprol XL) 25 mg Extended Release 24 hour tablet Take 1 Tablet (25 mg) by mouth daily. 90 Tablet 3 2 Active traZODone (DESYREL) 50 mg tablet Take 1 Tablet (50 mg) by mouth daily as needed for sleep 90 Tablet 1 07/12/2023 2:59 PM BRINEYARD SUPERVISOR 3 Active metoprolol succinate (TOPROL XL) 25 mg Extended Release 24 hour tablet Take 1 Tablet (25 mg) by mouth daily. 90 Tablet 1 10/23/2022 4:26 PM CDT 3 Active rosuvastatin (CRESTOR) 5 mg tablet Take 1 Tablet (5 mg) by mouth daily. 90 Tablet 1 01/21/2023 5:05 PM CDT 3 Active metoprolol succinate (TOPROL XL) 25 mg Extended Release 24 hour tablet Take 1 Tablet (25 mg) by mouth daily. 90 Tablet 3 3 Active metoprolol succinate (TOPROL XL) 25 mg Extended Release 24 hour tablet Take one tablet by mouth once daily. 90 Tablet 3 11/02/2023 5:17 PM CDT 3 Active penicillin V potassium (VEETID) 500 mg tablet Take one tablet by mouth every 6 hours until gone 28 Tablet 06/13/2023 4:33 PM BRINEYARD SUPERVISOR 3 Active rosuvastatin (CRESTOR) 5 mg tablet Take 1 Tablet (5 mg) by mouth daily. 90 Tablet 1 11/28/2023 5:05 PM CDT 4 Active timoloL maleate (TIMOPTIC) 0.5% solution Administer 1 Drop in both eyes 2 times daily. 10 mL 1 10/01/2023 4:53 PM CDT 4 Active tamsulosin (FLOMAX) 0.4 mg capsule Take 1 capsule (0.4 mg total) by mouth daily 90 Capsule 3 09/07/2024 6:49 PM BRINEYARD SUPERVISOR 4 Active traZODone (DESYREL) 50 mg tablet Take 1 Tablet (50 mg) by mouth 1 time daily as needed for sleep. Need appointment for future refills/90 days. 30 Tablet 01/26/2024 4:29 PM CDT 4 Active timoloL maleate (TIMOPTIC) 0.5% solution INSTILL ONE DROP IN BOTH EYES TWICE DAILY. 10 mL 6 06/21/2024 5:09 PM BRINEYARD SUPERVISOR 4 Active nirmatrelvir-ri tonavir (Paxlovid) 300(150mg x 2)-100 mg oral pack Take TWO 150 mg tablets of nirmatrelvir with ONE 100 mg tablet of ritonavir twice daily by mouth for 5 days. 30 Each 02/03/2024 4:41 PM CDT 4 Active metoprolol succinate (TOPROL XL) 25 mg Extended Release 24 hour tablet Take 1 Tablet (25 mg) by mouth daily. 90 Tablet 3 09/07/2024 6:49 PM BRINEYARD SUPERVISOR 4 Active cyclobenzaprine (FLEXERIL) 10 mg tablet Take 1 Tablet (10 mg) by mouth 2 times daily as needed for muscle spasm 30 Tablet 05/04/2024 4:47 PM CDT 4 Active HYDROcodone-azul taminophen (NORCO) 5-325 mg tablet Take 1 Tablet by mouth every 4 hours as needed for pain. Max Daily Amount: 6 Tablets 12 Tablet 05/16/2024 5:23 PM BRINEYARD SUPERVISOR 4 Active rosuvastatin (CRESTOR) 5 mg tablet Take 1 Tablet (5 mg) by mouth daily. 90 Tablet 07/31/2024 1:41 PM BRINEYARD SUPERVISOR 5 Active Immunizations Immunization Administration Dates Next Due (COMIRNATY)(12 YR UP) COVID- 19 VACCINE, MRNA, SPIKE PROTEIN, LNP, ANSHU(PF) 30 MCG/0.3 ML IM SUSP 05/21/2024 INFLUENZA VACCINE HIGH DOSE QUADRIVALENT 65 YR UP PF IM 04/17/2023,04/25/2022 INFLUENZA VACCINE HIGH DOSE TRIVALENT SPLIT VIRUS, (65 YR UP), 0.5ML (PF), IM 05/21/2024 Social History Tobacco Use Types Packs/Day Years Used Date Smoking Tobacco: Never Assessed Sex and Gender Information Value Date Recorded Sex Assigned at Not on file Legal Sex Male 3:27 PM CDT Gender Identity Not on file Sexual Orientation Not on file Plan of Treatment Health Maintenance Due Date Last Done Comments DTAP/TDAP/TD VACCINES (1 - Tdap) 01/25/1972 COLORECTAL SCREENING 1998 Colorectal Cancer Screening 1998 FIT-DNA Q 3 years 1998 FIT/FOBT Q 1 year 1998 Flex Sig/CT Colonography Q 5 years 1998 PNEUMOCOCCAL VACCINE 50+ YEA RS (1 of 1 - PCV) 2003 ZOSTER VACCINE (1 of 2) 2003 COVID-19 Vaccine (2 - season) 11/18/202403/2024 RSV VACCINE (60+ or ) (1 - 1-dose 75+ series) 01/25/2028 INFLUENZA VACCINE Completed 05/21/2024, , 04/25/2022 Insurance RX COLON PLANS (INTERNAL) [facility] RX [employer] DATA Medicare Part B RX [employer] Medicare Part D
--- OUTSIDE RECORDS SUMMARY | 2024-09-30 08:43 | XMS_ITS | Referral Summary ---
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 PSA was performed using the Adrian Elsa Immunoassay method. Values obtained from different assay methods cannot be used interchangeably. PSA levels, regardless of value, should not be interpreted as absolute evidence of the presence or absence of disease. Blood specimen (specimen) 12/11/2021 7:56 AM CDT 12/11/2021 7:57 AM CDT Narrative [facility] - 12/12/2021 3:25 PM CDT FASTING:YES FASTING: YES us Boogie Barry MD LAB BLOOD ORDERABLES Final Resul t [facility] [address] [address] [phone] from Last 3 Months or Most Recently Relevant to Health Maintenance Insurance MEDICARE [facility] Care Teams Dobby Loom Weaver Relationship Specialty Start Date End Date Naeem Rouse DO PCP - General Internal Medicine 05/28/21
== END 2024-09-29 08:21 | disposition home or self-care (01) ==
LOC: ANHLAB 09-30 08:23
PROVIDERS: PCP Internal Medicine; Visit Provider Physician Assistant Surgical
DX: D17.1 Benign lipomatous neoplasm of skin and subcutaneous tissue of trunk (principal)
CPT/HCPCS: 88304

== ENCOUNTER 2025-03-01 15:25 | Emergency (ER) | payer MEDICARE, OTHER, SELFPAY ==
[2025-03-01] VITALS (17 sets, daily range): BP systolic 120–150; BP diastolic 72–82; PULSE 70–97; RESP 16; TEMP 36.8; O2SAT 94–100
--- NOTE | ~2025-03-01 | CT_ITS ---
EXAMINATION: CT abdomen pelvis w con DATE: 03/01/2025 17:28 INDICATION: Abdomen pain and vomiting TECHNIQUE: Computed tomography (CT) of the abdomen and pelvis was performed without intravenous contrast. The dose-length product was 297.24 mGy-cm. Automated exposure control and iterative reconstruction technique were employed. COMPARISON: CT dated 05/13/2024. FINDINGS: Dependent atelectasis. Heart size normal. No significant pleural or pericardial effusion. There are fluid-filled small bowel loops as well as fluid- filled colon, suspicious for enterocolitis. No transition point to suggest an obstruction. There are changes of appendectomy. Enlarged prostate gland. No significant vascular abnormality. Multiple liver cysts. The spleen, pancreas, adrenal glands and left kidney are unremarkable. There is nonobstructing right renal stone. There is a right renal cyst. No free air or free fluid. Moderate lumbar spondylosis. With grade 1 degenerative spondylolisthesis at L4-5. No focal lytic or blastic lesions. IMPRESSION: 1. Fluid-filled distended small bowel and colon, ileus versus enterocolitis. 2: Nonobstructing right nephrolithiasis. Reviewed, dictated and finalized at location A.
--- OUTSIDE RECORDS SUMMARY | 2025-03-01 15:00 | XMS_ITS | Encounter Summary ---
Author Organization [facility] Address [address] [place] [address] Care Team Providers Care Duralumin Metalworker Name Role Phone Naeem Rosue DO Primary Care Provider +1- [phone] Reason for Visit * Reason Comments Abdominal Pain Pressure in his lowe r abdominal area, started around 10 pm last night Vomiting Vomited 4 to 5 times in the last 8 hours, vomited yellowStarted last night Encounter Details Date Type Department Care Team (Late st Contact Info) Description 03/01/2025 3:00 PM CDT Office Visit [facility] at [address] [phone] Neyda Allen NP [address] [place] [id number] Nausea and vomiting, unspecified vomiting type (Primary Dx) Social History Tobacco Use Types Packs/Day Years Used Date Smoking Tobacco: Never Smokeless Tobacco: Never Sex and Gender Information Value Date Recorded Sex Assigned at Not on file 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 Gender Identity Male 05/29/2021 3:17 PM GAMING PIT BOSS Sexual Orientation Not on file documented as of this encounter Last Filed Vital Signs Vital Sign Reading Time Taken Comments Blood Pressure 117/78 03/01/2025 2:52 PM CDT Pulse 78 03/01/2025 2:52 PM CDT Temperature 36.9 C (98.5 F) 03/01/2025 2:52 PM CDT Respiratory Rate 16 03/01/2025 2:52 PM CDT Oxygen Saturation 97% 03/01/2025 2:52 PM CDT Inhaled Oxygen Concentration - - Weight 79.2 kg (174 lb 9.6 oz) 03/01/2025 2:52 P M CDT Height 185.4 cm (6' 1) 03/01/2025 2:52 PM CDT Body Mass Index 23.04 03/01/2025 2:52 PM CDT documented in this encounter Patient Instructions * Patient Instructions* Neyda Allen NP - 03/01/2025 3:00 PM CDT -Increase your fluid intake. Oral rehydration solutions, like Gatorade or Pedialyte, may be taken. -If vomiting or having watery diarrhea, start with clear liquids (Any fluids you can see through such as apple juice, Jell-O, broth, etc) for 24-48 hours. -Advance to more solid food only as tolerated. -You may try Pepto-Bismol, per package directions, as needed for symptomatic relief. FOLLOW-UP ?? Follow up with your primary care provider if symptoms worsen or do not resolve in one week. ?? If unable to keep fluids down for more than 12 hours, call your primary care provider or go to urgent care/ER for evaluation. ?? If you start running fevers greater than 101.3, have dark yellow urine or no urine output for 12hours, develop severe abdominal pain or have bloody diarrhea, call your primary care provider or [facility] urgent care/ER for evaluation. If abdominal pain develops, continues or increases within the next 24-48 hours, see your primary care provider or go to urgent care/ER for further evaluation and management * Attachments The following attachments cannot be sent through Care Everywhere. * Acute Nausea and Vomiting (Piping Design Specialist) (Barbadian) documented in this encounter Ordered Prescriptions Prescription Sig Dispense Quantity Refills Last Filled Start Date End Date ondansetron ODT (ZOFRAN-ODT) 4 mg disintegrating tabletIndications:Na usea and vomiting, unspecified vomiting type Take 1 tablet (4 mg total) by mouth every 8 (eight) hours as needed for nausea or vomiting 8 tablet 03/01/2025 documented in this encounter Progress Notes * Neyda Allen NP - 03/01/2025 3:00 PM CDT Images from the original note were not included. Subjective/Objective Patient ID: Grant Monge is a 70 y.o. male. This patient has verbally consented to recording this visit in order to utilize AI technology in generating this note. Chief Complaint Abdominal Pain (Pressure in his lower abdominal area, started around 10 pm last night ) and Vomiting (Vomited 4 to 5 times in the last 8 hours, vomited yellow/Started last night) History of Present Illness Grant Monge is a 70 year old male who presents with abdominal tenderness and vomiting. He has been experiencing abdominal pain and vomiting since last night. The abdominal pain is described as a pressure-like sensation and is associated with bloating that subsides after vomiting. He has been unable to retain fluids, including water and carbonated beverages, which exacerbates the vomiting. No diarrhea, fever, or sharp stabbing pain. No urinary symptoms such as burning or blood in the urine. He notes a recent change in bowel habits, having had a small bowel movement a couple of hours ago after taking a stool softener last night. Typically, he has regular bowel movements after breakfast, but his routine has been disrupted due to not eating this morning. He recalls consuming a meal that was excessively spicy the previous day but does not attribute it to his current symptoms. He has not been in contact with anyone who is ill and had a negative COVID test this morning. Review of Systems All other systems reviewed and are negative. Physical Exam ABDOMEN: Abdomen soft, non-tender to palpation. Bowel sounds present. Physical Exam Vitals reviewed. Constitutional: General: He is not in acute distress. Appearance: Normal appearance. He is not ill-appearing. HENT: Head: Normocephalic. Mouth/Throat: Lips: Weems. Cardiovascular: Rate and Rhythm: Normal rate. Pulmonary: Effort: Pulmonary effort is normal. Breath sounds: Normal breath sounds. Abdominal: General: Bowel sounds are normal. There is no distension. Palpations: Abdomen is soft. There is no shifting dullness. Tenderness: There is generalized abdominal tenderness. There is no guarding or rebound. Skin: General: Skin is warm. Neurological: Mental Status: He is alert and oriented to person, place, and time. Psychiatric: Mood and Affect: Mood normal. Vitals: 03/01/25 1452 BP: 117/78 Pulse: 78 Resp: 16 Temp: 36.9 ??C (98.5 ??F) SpO2: 97% Weight: 79.2 kg (174 lb 9.6 oz) Height: 185.4 cm (6' 1) No past medical history on file. Current Outpatient Medications: aspirin 325 mg tablet, Take 1 tablet every day by oral route., Disp: , Rfl: cyclobenzaprine (FLEXERIL) 10 mg tablet, Take 1 tablet (10 mg total) by mouth 2 (two) times a day as needed, Disp: , Rfl: metoprolol XL (TOPROL-XL) 25 mg extended release tablet, Take 1 tablet (25 mg total) by mouth daily, Disp: , Rfl: rosuvastatin (CRESTOR) 5 mg tablet, Take 1 tablet (5 mg total) by mouth daily, Disp: , Rfl: tadalafiL (CIALIS) 5 mg tablet, Take 1 tablet (5 mg total) by mouth daily, Disp: 90 tablet, Rfl: 3 tamsulosin (FLOMAX) 0.4 mg extended release capsule, Take 1 capsule (0.4 mg total) by mouth daily, Disp: 90 capsule, Rfl: 3 timolol (TIMOPTIC) 0.5 % ophthalmic solution, INSTILL ONE DROP IN BOTH EYES TWICE DAILY, Disp: , Rfl: ondansetron ODT (ZOFRAN-ODT) 4 mg disintegrating tablet, Take 1 tablet (4 mg total) by mouth every 8 (eight) hours as needed for nausea or vomiting, Disp: 8 tablet, Rfl: 0 traZODone (DESYREL) 50 mg tablet, Take 1 tablet (50 mg total) by mouth daily as needed (Patient nottaking: Reported on 03/01/2025), Disp: , Rfl: No Known Allergies Social History Tobacco Use Smoking status: Never Smokeless tobacco: Never Substance and Sexual Activity Drug use: None Sexual activity: None Alcohol Use: Not on file History reviewed. No pertinent surgical history. Procedures Assessment/Plan 1. Nausea and vomiting, unspecified vomiting type (Primary) - ondansetron ODT (ZOFRAN-ODT) 4 mg disintegrating tablet; Take 1 tablet (4 mg total) by mouth every 8 (eight) hours as needed for nausea or vomiting Dispense: 8 tablet; Refill: 0 Results LABS COVID-19 test: negative (03/01/2025) Assessment & Plan Acute abdominal pain with nausea, vomiting, and abdominal distension Diffuse tenderness, no sharp pain. Abdominal distension concerning with vomiting. Risk of dehydration due to inability to keep water down. - Prescribed Zofran for nausea and vomiting. - Advising grown to the ER for further testing and treatment for abdominal pain with bloating and vomiting. Education --GO TO ER Disposition Treatment plan including expectations, follow up, and return precautions discussed with patient/parent, verbalizes understanding. Medication dosage, use, and potential adverse reactions discussed with patient/parent. Advised to follow up with PCP if symptoms do not resolve as expected or sooner if condition worsens. Signs/symptoms warranting ER evaluation reviewed. Patient and/or guardian was given an opportunity to ask questions, questions answered. Neyda Allen NP This office note has been partially dictated using [employer] software, and as a result portions of the record may have been created with this software. Occasional wrong-word or '[id number]' substitutions may have occurred due to the inherent limitations of voice recognition software. Read the chartcarefully and recognize, using context, where substitutions have occurred. documented in this encounter Plan of Treatment Not on file documented as of this encounter Visit Diagnoses Diagnosis Nausea and vomiting, unspecified vomiting type- Primary documented in this encounter Care Teams Duralumin Metalworker Relationship Specialty Start Date End Date Naeem Rouse DO PCP - General Internal Medicine 05/28/21 documented as of this encounter
--- OUTSIDE RECORDS SUMMARY | 2025-03-01 15:51 | XMS_ITS | Clinical Summary ---
Author Organization [facility] Address [address] [place] [address] Care Team Providers Care Clinical Assoc Name Role Phone Naeem Rouse DO Primary Care Provider [phone] Allergies No known active allergies Medications aspirin 325 mg tablet Take 1 tablet every day by oral route. Active cyclobenzaprine (FLEXERIL) 10 mg tablet Take 1 tablet (10 mg total) by mouth 2 (two) times a day as needed 4 Active metoprolol XL (TOPROL-XL) 25 mg extended release tablet Take 1 tablet (25 mg total) by mouth daily Active rosuvastatin (CRESTOR) 5 mg tablet Take 1 tablet (5 mg total) by mouth daily 3 Active timolol (TIMOPTIC) 0.5 % ophthalmic solution INSTILL ONE DROP IN BOTH EYES TWICE DAILY Active traZODone (DESYREL) 50 mg tablet Take 1 tablet (50 mg total) by mouth daily as needed 3 Active tadalafiL (CIALIS) 5 mg tabletIndications:E rectile dysfunction, unspecified erectile dysfunction type,Benign prostatic hyperplasia with weak urinary stream Take 1 tablet (5 mg total) by mouth daily 90 tablet 3 5 12/17/19 26 Active tamsulosin (FLOMAX) 0.4 mg extended release capsuleIndications: Elevated prostate specific antigen (PSA) Take 1 capsule (0.4 mg total) by mouth daily 90 capsule 3 5 Active ondansetron ODT (ZOFRAN-ODT) 4 mg disintegrating tabletIndications:N ausea and vomiting, unspecified vomiting type Take 1 tablet (4 mg total) by mouth every 8 (eight) hours as needed for nausea or vomiting 8 tablet Active Active Problems Problem Noted Date Diagnosed Date Dizziness 05/01/2023 Hyperlipidemia 05/01/2023 Orthostatic hypotension 05/01/2023 Palpitations 08/17/2020 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 at [address] [address] Neyda Allen NP Nausea and vomiting, unspecified vomiting type (Primary Dx) 12/27/2024 Telephone [facility] Medicine Surgery [address] [place] [id number] Evelyn Rivera 12/16/2024 3:20 PM CDT Office Visit [facility] ([facility]) - [facility] [address] [place] [address] 11[address] [place] [address] Emilee Lomax PA Benign prostatic hyperplasia with weak urinary stream (Primary Dx); Erectile dysfunction, unspecified erectile dysfunction type; Elevated prostate specific antigen (PSA) 12/08/2024 Telephone 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 Gender Identity Male 05/29/2021 3:17 PM SOLAR CONSULTANT Sexual Orientation Not on file Obstetrics History Last Filed Vital Signs Vital Sign Reading [...] Mass Index 23.04 03/01/2025 2:52 PM CDT Plan of Treatment Health Maintenance Due Date Last Done Comments Colon Cancer Screening-Colonoscopy 1955 Depression Screening 1955 Fall Risk Assessment 1955 Hepatitis C Screening 1955 DTaP/Tdap/Td Vaccine (1 - Tdap) 01/25/1964 Hepatitis B Screening 1971 Well Visit 65+ 2018 Zoster Vaccine (2 of 3) 07/01/2019 05/06/2019 Pneumococcal vaccine 65+ (2 of 2 - PCV20 or PCV21) 05/13/2020 05/13/2019 Covid-19 Vaccine (4 - 2023-2 5 season) 2024 05/10/2021, 09/30/2020, 09/09/2020 Influenza Vaccine (#1) 2025 , 05/06/2019, 04/13/2018, Additional history exists Prostate Cancer Screening-PSA Discontinued 12/11/2021 Procedures Procedure Name Priority Date/Time Associated Diagnosis Comments MEASURE POST VOID RESIDUAL Routine 12/16/2024 3:20 PM CDT Elevated prostate specific antigen (PSA) PSA, TOTAL AND FREE Routine 12/11/2021 7 :56 AM CDT Elevated prostate specific antigen (PSA) from Last 3 Months or Most Recently Relevant to Health Maintenance Results * Measure post void residual (12/16/2024 3:20 PM CDT) Narrative Prema Olivas, CABRERA - 12/16/2024 3:20 PM CDT Measurement of Post Void Residual urine and/or bladder capacity PVR = 0 ml Emilee MEHTA NURSING ASSESSMENTS F inal Result * PSA, total and free (12/11/2021 7:56 AM CDT) [facility] PSA 3.1 < OR = 4.0 ng/mL [...] 30 93 9 (3)Catalona et al.:LAURY 277: [id number] (1996) (4)Catalona et al.:LAURY 279: 9117-5245 (1997) (x)These estimates vary with age, ethnicity, [...] mind. PSA was performed using the Adrian [place] Immunoassay method. Values obtained from different assay methods cannot be used interchangeably. PSA levels, regardless of value, should not be interpreted as absolute evidence of the presence or absence of disease. Blood specimen (specimen) 12/11/2021 7:56 AM CDT 12/11/2021 7:57 AM CDT Narrative [facility] - 12/12/2021 3:25 PM CDT FASTING:YES FASTING: YES us Boogie Barry MD LAB BLOOD ORDERABLES Final Resul t [facility] [id number] [phone] from Last 3 Months or Most Recently Relevant to Health Maintenance Insurance MEDICARE [facility] MEDICARE [facility] Care Teams Clinical Assoc Relationship Specialty Start Date End Date Naeem Rouse DO PCP - General Internal Medicine 05/28/21
--- OUTSIDE RECORDS SUMMARY | 2025-03-01 15:51 | XMS_ITS | Clinical Summary ---
Author Organization [employer] [facility] Address [address] [facility] [address] Attn: Nieves Prelude ADT [place] [address] Care Team Providers Care Stair Builder Name Role Phone Unavailable Primary Care Provider [...] sleep 90 Tablet 1 07/12/2023 2:59 PM CRIMINAL INTELLIGENCE ANALYST 3 Active metoprolol succinate (TOPROL XL) 25 [...] until gone 28 Tablet 06/13/2023 4:33 PM CRIMINAL INTELLIGENCE ANALYST 3 Active rosuvastatin (CRESTOR) 5 mg tablet [...] daily 90 Capsule 3 09/07/2024 6:49 PM CRIMINAL INTELLIGENCE ANALYST 4 Active traZODone (DESYREL) 50 mg tablet Take 1 Tablet (50 mg) by mouth 1 time daily as needed for sleep. Need appointment for future refills/90 days. 30 Tablet 01/26/2024 4:29 PM CDT 4 Active timoloL maleate (TIMOPTIC) 0.5% solution INSTILL ONE DROP IN BOTH EYES TWICE DAILY. 10 mL 6 06/21/2024 5:09 PM CRIMINAL INTELLIGENCE ANALYST 4 Active nirmatrelvir-ri tonavir (Paxlovid) 300(150mg x [...] daily. 90 Tablet 3 09/07/2024 6:49 PM CRIMINAL INTELLIGENCE ANALYST 4 Active cyclobenzaprine (FLEXERIL) 10 mg tablet Take 1 Tablet (10 mg) by mouth 2 times daily as needed for muscle spasm 30 Tablet 05/04/2024 4:47 PM CDT 4 Active HYDROcodone-azul taminophen (NORCO) 5-325 mg tablet Take 1 Tablet by mouth every 4 hours as needed for pain. Max Daily Amount: 6 Tablets 12 Tablet 05/16/2024 5:23 PM CRIMINAL INTELLIGENCE ANALYST 4 Active rosuvastatin (CRESTOR) 5 mg tablet Take 1 Tablet (5 mg) by mouth daily. 90 Tablet 07/31/2024 1:41 PM CRIMINAL INTELLIGENCE ANALYST 5 Active rosuvastatin (CRESTOR) 5 mg tablet Take 1 Tablet (5 mg) by mouth daily. 90 Tablet 5 Active tamsulosin (FLOMAX) 0.4 mg capsule Take 1 capsule (0.4 mg total) by mouth daily 90 Capsule 3 5 Active Immunizations Immunization Administration Dates Next [...] 2003 COVID-19 Vaccine (2 - season) 11/18/202403/2024 INFLUENZA VACCINE (#1) 2025 4, 04/17/2023, 04/25/2022 RSV VACCINE (60+ or ) (1 - 1-dose 75+ series) 01/25/2028 Insurance RX [employer] (INTERNAL) [facility] RX [employer] Medicare Part B RX [employer] Medicare Part D
[2025-03-01 15:58] LABS: Hematocrit 51.0 % (42.0-52.0); Hemoglobin 17.3 g/dL (14.0-18.0); Immature Granulocyte Percent A 0.5 % (0-0.5); Lymphocytes Absolute Auto 1.03 K/mm3 (0.9-3.2); Mean Corpuscular HGB Conc 33.9 g/dl (32-36); Mean Corpuscular Hemoglobin 30.6 pg (26-34); Mean Corpuscular Volume 90.3 fl (80-100); Nucleated Red Blood Cells Absolute Auto 0.000 K/mm3 (0.0-0.012); Nucleated Red Blood Cells Perc 0.0 % (0.0-0.2); Platelet Count Result 220 k/mm3 (150-375); Red Blood Count 5.65 M/mm3 (4.6-6.20); White Blood Count 11.8 K/mm3 (4.5-10.0)
[2025-03-01 16:08] LABS: Add Urine Microscopic? YES; Appearance Urine Cloudy (Clear); Glucose Urine UA Negative (Negative); Leukocyte Esterase Ur Trace LEU/UL (Negative); Need Manual Microscopic Reviewed; Nitrate Urine Negative (Negative); Specific Grav Ur 1.035 (1.001-1.035)
[2025-03-01 16:17] LABS: Alanine Aminotransferase 23 U/L (6-50); Albumin Level 5.2 g/dL (3.5-5.1); Alkaline Phosphatase 60 U/L (38-126); Anion Gap 12 mmol/L (4-12); Aspartate Amino Transferase 38 U/L (17-59); Bilirubin,Total 1.3 mg/dL (0.2-1.3); Blood Urea Nitrogen 28 mg/dL (9-20); Calcium 10.3 mg/dL (8.4-10.2); Carbon Dioxide 23 mmol/L (22-30); Chloride 104 mmol/L (98-107); Estimated CRCL calculation 76 ml/min; Estimated Glomerular Filt Rate > 60; Glucose 128 mg/dL (65-110); Lipase 59 U/L (23-300); Potassium 4.3 mmol/L (3.4-5.0); Sodium 139 mmol/L (137-145); Total Protein 8.2 g/dL (6.3-8.2)
[2025-03-01] MEDS: ONDANSETRON INJ 4 MG/2 ML VIAL IV PUSH (17:31)
[2025-03-01] MEDS: SODIUM CHLORIDE 0.9% IV 1,000 ML 999 ML IV CONT (17:31)
--- NOTE | 2025-03-01 17:35 | ED.NAVMDI ---
HPI - Nausea/Vomiting/Diarrhea General Chief complaint: Nausea/Vomiting/Diarrhea Stated complaint: Nausea and vomiting since 0300 Time Seen by Provider: 03/01/25 16:10 Source: patient Mode of arrival: ambulatory Limitations: no limitations History of Present Illness HPI Narrative: This is a 70-year-old male that presents to the emergency department for abdominal pain, nausea vomiting. Ongoing since earlier this morning. Denies fevers, dysuria, diarrhea. Related Data Home Medications ?Medication ?Instructions ?Recorded ?Confirmed ?Last Taken ?Type aspirin 325 mg tablet 325 mg PO DAILY 06/18/22 07/08/24 05/12/24 History tamsulosin 0.4 mg capsule 0.4 mg PO DAILY 07/22/22 07/08/24 05/12/24 History timolol maleate 0.5 % eye drops drp ophthalmic (eye) 07/08/24 07/08/24 Unknown History Allergies Allergy/AdvReac Type Severity Reaction Status Date / Time No Known Allergies Allergy Verified 03/01/25 15:27 Review of Systems Review of Systems: All systems reviewed & are unremarkable except as noted in HPI and below PMFSH Past Medical History Medical History Hypertension Surgical History Surgical History History of laparoscopic appendectomy 05/13/[address] Quiles S/P left inguinal herniorrhaphy History of permanent cardiac pacemaker placement Family History Family History Father Patient's father is Malignant neoplasm of prostate Sibling No family history of allergies Family history of malignant neoplasm of breast Mother No family history of hypertension Cerebrovascular accident Social History Social History Social History: caffeine-coffee Smoking status: Never smoker Second hand tobacco smoke exposure: No Alcohol intake: current Drinks per week: 4 Alcohol use details: 2 drinks daily Substance use: never Substance use type: does not use Do You Feel Safe in your Home?: Yes Lack of Transportation: No Lack of Food: Never True Current Housing: I Have Housing Concerned About Future Housing: No Difficulty Paying Gas/Electric Bills: No Difficulty Paying for Meds: No Currently Unemployed: No Education: Associate Degree Difficulty w/ Childcare or Family Care: No Living arrangements: alone Occupation/Education: occupation 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 HEAD: Normocephalic, atraumatic. EYES: EOMI. ENT: Nares clear, no rhinorrhea or epistaxis. Mucous membranes moist. CHEST: Clear to auscultation. No respiratory distress. No wheezes rales or rhonchi HEART: Regular rate and rhythm. No murmur heard. Normal peripheral pulses. ABDOMEN: Soft, nontender, nondistended, normal active bowel sounds. EXTREMITIES: Normal range of motion. No edema. SKIN: Warm, dry, no rash. NEURO: No focal deficits. Alert and oriented x3. PSYCH: Normal mood and affect Course Course Emergency Course: Patient feeling much better at this time Vital Signs Vital signs: Vital Signs Temperature 98.3 F 03/01/25 15:28 Pulse Rate 76 03/01/25 15:28 Respiratory Rate 16 03/01/25 15:28 Blood Pressure 126/77 03/01/25 15:28 Pulse Oximetry 100 03/01/25 15:28 Oxygen Delivery Room Air 03/01/25 15:28 Temperature 98.3 F 03/01/25 15:28 Pulse Rate 97 03/01/25 15:45 Respiratory Rate 16 03/01/25 15:28 Blood Pressure 150/72 H 03/01/25 18:17 Pulse Oximetry 97 03/01/25 18:17 Oxygen Delivery Room Air 03/01/25 15:28 MDM - Nausea/Vomiting/Diarrhea MDM Narrative Medical decision making narrative: Patient presents emergency department for abdominal discomfort, nausea and vomiting. Patient is afebrile and nontoxic appearing. His vitals are stable. CBC with mild leukocytosis to 11.8. Metabolic panel without concerning findings. Urine with trace leuk esterase, 11-20 white blood cells. Also squamous epithelial cells. Patient does not have any urinary symptoms. Will send this for culture. CT abdomen and pelvis showing findings of enterocolitis versus ileus. Patient hydrated and given Zofran with relief. Instructed on clear liquid diet. Is to follow-up with PCP. Given strict return precautions Differential Diagnosis Differential diagnosis: Likely food poisoning, gastroenteritis, dehydration and other (ileus, SBO) Lab Data Attestation: I reviewed the patient's lab results. 03/01/25 15:48 03/01/25 15:48 Labs: Lab Results 03/01/25 Range/Units 15:48 WBC 11.8 H (4.5-10.0) K/mm3 RBC 5.65 (4.6-6.20) M/mm3 Hgb 17.3 (14.0-18.0) g/dL Hct 51.0 (42.0-52.0) % MCV 90.3 (80-100) fl MCH 30.6 (26-34) pg MCHC 33.9 (32-36) g/dl RDW 12.4 (11.5-14.5) % Plt Count 220 (150-375) k/mm3 MPV 10.4 (7.4-10.4) fl Immature Gran % (Auto) 0.5 (0-0.5) % Neut % (Auto) 82.5 H (45.5-73.1) % Lymph % (Auto) 8.8 L (18.3-44.2) % [place] % (Auto) 7.9 (2.6-8.5) % Eos % (Auto) 0.0 (0-4.4) % Baso % (Auto) 0.3 (0.2-1.2) % Lymph # (Auto) 1.03 (0.9-3.2) K/mm3 [place] # (Auto) 0.9 H (0.1-0.6) K/mm3 Eos # (Auto) 0.0 (0-0.3) K/mm3 Baso # (Auto) 0.0 (0.0-0.1) K/mm3 Abs Immat Gran (auto) 0.06 H (0.00-0.031) K/mm3 Absolute Neuts (auto) 9.7 H (1.3-6.7) K/mm3 Absolute Nucleated RBC 0.000 (0.0-0.012) K/mm3 Nucleated RBC % 0.0 (0.0-0.2) % Sodium 139 (137-145) mmol/L Potassium 4.3 (3.4-5.0) mmol/L Chloride 104 (98-107) mmol/L Carbon Dioxide 23 (22-30) mmol/L Anion Gap 12 (4-12) mmol/L BUN 28 H (9-20) mg/dL Creatinine 0.86 (0.7-1.3) mg/dL Estim Creat Clear Calc 76 ml/min Estimated GFR > 60 (59 - ) Glucose 128 H (65-110) mg/dL Calcium 10.3 H (8.4-10.2) mg/dL Total Bilirubin 1.3 (0.2-1.3) mg/dL AST 38 (17-59) U/L ALT 23 (6-50) U/L Alkaline Phosphatase 60 (38-126) U/L Total Protein 8.2 (6.3-8.2) g/dL Albumin 5.2 H (3.5-5.1) g/dL Lipase 59 (23-300) U/L Urine Color Dark yellow (Yellow) Urine Appearance Cloudy H (Clear) Urine pH 5.5 (5.0-9.0) Ur Specific [place] 1.035 (1.001-1.035) Urine Protein 1+ H (Negative) mg/dL Urine Glucose (UA) Negative (Negative) mg/dL Urine Ketones 2+ H (Negative) mg/dL Ur Blood (Man) Trace (Negative) Urine Nitrate Negative (Negative) Urine Bilirubin 1+ H (Negative) Urine Urobilinogen 1.0 (<2.0) mg/dL Add Ur Microanalysis Reviewed Leukocyte Esterase Rfl Trace H (Negative) CONCHITA/UL Urine RBC 3-5 H (0-2) /hpf Urine WBC 11-20 H (0-3) /hpf Ur Squamous Epith Cells Few (Few) /hpf Urine Bacteria None seen /hpf Urine Casts 3-5 Urine Mucus Present /lpf Imaging Data Radiologist's impression: ITS Impressions Abdomen/Pelvis CT 03/01/25 17:32 IMPRESSION: 1. Fluid-filled distended small bowel and colon, ileus versus enterocolitis. 2: Nonobstructing right nephrolithiasis. Critical Care Time Critical Care Time Critical Care Time: No Discharge Plan Discharge Clinical Impression: Enteritis, Ileus Patient Disposition: Home Condition: Improved Instructions: Clear Liquid Diet (ED), Ileus (ED), Enteritis (ED) Additional Instructions: Return to the ER if you experience fever, worsening abdominal pain with nausea and vomiting, you are unable to keep down liquids or solids, pain or burning with urination, blood in the urine or any other symptoms that are concerning to you Remain well hydrated. Clear liquid diet. Ondansetron as needed for nausea. Follow up with your primary care doctor Your urine had some white blood cells, since you are not symptomatic we will await culture results Patient Language: Burkinan Prescriptions: New ondansetron 4 mg tablet,disintegrating 4 mg PO Q8H PRN (Reason: nausea and vomiting) Qty: 10 0RF No Action aspirin 325 mg tablet 325 mg PO DAILY timolol maleate 0.5 % drops ophthalmic (eye) tamsulosin 0.4 mg capsule 0.4 mg PO DAILY metoprolol succinate 25 mg tablet extended release 24 hr 25 mg PO DAILY Qty: 90 1RF rosuvastatin 5 mg tablet See Rx Instructions .ROUTE .COMPLEX Qty: 90 1RF Dose Instruction: Take 1 Tablet (5 mg) by mouth daily. Rx Instructions: Take 1 Tablet (5 mg) by mouth daily. Follow-up/Referrals: Naeem Rouse DO [Primary Care Provider, Internal Medicine]
== END 2025-03-01 19:18 | disposition home or self-care (01) ==
PROVIDERS: Emergency Provider Physician Assistant; PCP Internal Medicine
DX: K52.9 Noninfective gastroenteritis and colitis, unspecified (principal); K56.7 Ileus, unspecified; Z95.0 Presence of cardiac pacemaker; N20.0 Calculus of kidney; Z79.82 Long term (current) use of aspirin; Z79.899 Other long term (current) drug therapy
CPT/HCPCS: 36415; 74177; 80053; 81001; 83690; 85025; 87086; 96361; 96374; 99284; J2405; J7030; Q9967